=== PATIENT | female | born 1945 | race Caucasian/White ===

== ENCOUNTER → 2018-10-04 | Outpatient (CLI) | payer MEDICARE ==
--- NOTE | 2018-10-05 22:34 | BD ---
EXAMINATION TYPE: Axial Bone Density DATE OF EXAM: 10/04/2018 COMPARISON: 2016 CLINICAL HISTORY: osteoporosis Height: 5'5 1/2 Weight: 152 FRAX RISK QUESTIONS: Secondary Osteoporosis: 3. Menopause before 45: y RISK FACTORS HISTORY OF: Diet low in dairy products/other sources of calcium: y Postmenopausal woman: y Lost more than 2 inches in height since high school: y MEDICATIONS: Additional Medications: , kidney stones, potassium , acid reflux, cholesterol , frequent urination Additional History: ovarian cancer 1983, chemo. breast cancer 2013 chemo EXAM MEASUREMENTS: Bone mineral densitometry was performed using the [employer] System. Bone mineral density as measured about the Lumbar spine is: ----- L1-L4(G/cm2): 1.465 T Score Values are as follows: ----- L2: 2.1 ----- L3: 3.7 ----- L4: 3.1 ----- L1-L4: 2.4 Bone mineral density has: Increased 9.1% since study of: 09/11/2015 Bone mineral density about the R hip (g/cm2): 0.958 Bone mineral density about the L hip (g/cm2): 0.954 T Score values are as follows: -----R Neck: -0.6 -----L Neck: -0.6 -----R Total: 0.0 -----L Total: -0.4 Bone mineral density has: Increased 3.0% since study of: 09/11/2015 IMPRESSION: Normal (Values between +1 and -1 indicate normal bone mass). Consider repeating this study in 5 year s or sooner if there is some new clinical indication. NOTE: T-SCORE=SD OF THE YOUNG ADULT MEAN.
== END | disposition home or self-care (01) ==
LOC: RADBDWWP 08:36
PROVIDERS: ATTEND Internal Medicine
DX: M81.0 Age-related osteoporosis without current pathological fracture (principal)
CPT/HCPCS: 77080

== ENCOUNTER → 2019-04-19 | Outpatient (CLI) | payer MEDICARE ==
--- NOTE | 2019-04-19 09:42 | XR ---
EXAMINATION TYPE: XR KUB DATE OF EXAM: 04/19/2019 COMPARISON: 04/19/2019 HISTORY: Kidney stones and flank pain TECHNIQUE: Abdomen is examined in the frontal projection. FINDINGS: Psoas margins are normal. Organomegaly is not evident. No mass effect is evident. Normal co lonic bowel gas is present. Periventricular phleboliths within the pelvis. Distal ureteral stones cou ld be considered on the left. Correlate with symptoms. Suspicious calcifications are not otherwise i dentified. IMPRESSION: 1. No suspicious changes identified.
== END | disposition home or self-care (01) ==
LOC: RADXRMAIN 09:11
PROVIDERS: ATTEND Internal Medicine
DX: N20.0 Calculus of kidney (principal)
CPT/HCPCS: 74018

== ENCOUNTER → 2019-06-06 | Outpatient (CLI) | payer MEDICARE ==
[2019-06-06 11:06] LABS: Basophils # (A) 0.1 k/uL (0-0.2); Basophils % (A) 2 %; Eosinophils # (A) 0.3 k/uL (0-0.7); Eosinophils % (A) 5 %; HCT 43.2 % (34.0-46.0); Lymphocytes % (A) 33 %; MCH 28.5 pg (25.0-35.0); MCHC 32.5 g/dL (31.0-37.0); MCV 87.9 fL (80.0-100.0); Mean Platelet Volume 7.1; Monocytes # (A) 0.4 k/uL (0-1.0); Monocytes % (A) 7 %; Neutrophils % (A) 49 %; Platelet Count 321 k/uL (150-450); RBC 4.92 m/uL (3.80-5.40); RDW 12.7 % (11.5-15.5); WBC 6.2 k/uL (3.8-10.6)
[2019-06-06 11:21] LABS: Potassium 4.1 mmol/L (3.5-5.1)
== END | disposition home or self-care (01) ==
LOC: LABWHC1 10:16
PROVIDERS: ATTEND Orthopaedic Surgery
DX: Z01.818 Encounter for other preprocedural examination (principal); M65.341 Trigger finger, right ring finger
CPT/HCPCS: 36415; 80051; 85025

== ENCOUNTER 2019-06-29 10:53 | Day surgery (SDC) | payer MEDICARE ==
[2019-06-26 11:53] VITALS: BMI 25.0
--- NOTE | 2019-06-28 20:43 | HP ---
HISTORY AND PHYSICAL REASON FOR ADMISSION: Surgery scheduled for 06/29/2019 Olivia Blair is a 73-year-old patient seen with symptomatic right ring finger trigger finger. We discussed options for treatment. She elected to proceed with release A1 pia, right ring finger. Consent regarding procedure is obtained. PAST MEDICAL HISTORY: Hypertension, hyperlipidemia. PAST SURGICAL HISTORY: Hysterectomy. DAILY MEDICATIONS: Hydrochlorothiazide, potassium chloride, simvastatin, vitamins. ALLERGIES: PENICILLIN, CLINDAMYCIN. SOCIAL HISTORY: She denies tobacco use. PHYSICAL EXAMINATION: Physical evaluation of the right hand, tenderness along the A1 pia area of the right ring finger. There is a nodule palpable at that area as well. There is clicking and catching of the right ring finger. There is no tenderness along the remaining areas of the A1 pulleys. She has good perfusion sensation distally. RADIOGRAPHS: Radiographs of the right hand revealed mild osteoarthritic changes. IMPRESSION: 1. Right ring finger trigger finger. 2. Hypertension. 3. Hyperlipidemia. PLAN: Release A1 pia, right ring finger. Surgery is scheduled for 06/29/2019. MMODL / IJN: [id number] /
[~2019-06-29 10:53] MED LIST: DEXAMETHASONE SOD PHOSPHATE 10 MG/ML 1 ML VIAL IV ONE; HYDROmorphone 0.5 MG/0.5 ML SYRINGE IVP PRN; LACTATED RINGERS 1,000 ML IV SCH; LIDOCAINE 1% 20 ML VIAL (10MG/ML) FOR IV START INTRADERMA PRN; ONDANSETRON 4 MG/2 ML VIAL IVP ONE; Pre Op ABX Message 1 EACH MISC MISCELLANE ONE
[2019-06-29 11:50] VITALS: RESP 16; TEMP 97.1
[2019-06-29] MEDS ORDERED: fentaNYL (PF) 50 MCG/ML 2 ML AMP ONE (12:17)
[2019-06-29] MEDS ORDERED: MIDAZOLAM 2 MG/2 ML VIAL ONE (12:17)
[2019-06-29] MEDS ORDERED: PROPOFOL 10 MG/ML 20 ML VIAL IV ONE (12:17)
[2019-06-29] MEDS ORDERED: BUPIVACAINE (PF) 0.25% 30 ML VIAL SQ ONE ×2 (12:43)
--- NOTE | 2019-06-29 13:02 | P.OP ---
Date of Procedure: 06/29/19 Preoperative Diagnosis: Right ring finger trigger finger Postoperative Diagnosis: Right ring finger trigger finger Procedure(s) Performed: Release A1 pia right ring finger Anesthesia: MAC, local Surgeon: Gabriel Gordon Estimated Blood Loss (ml): 0 Pathology: none sent Condition: stable Disposition: PACU Indications for Procedure: 73-year-old patient seen with symptomatic right ring finger trigger finger. After treatment options were discussed, she elected to proceed with release A1 pia right ring finger. Operative Findings: see description of procedure Description of Procedure: The patient was taken to the operative suite. The patient received IV sedation by the department of anesthesia. A well-padded tourniquet placed proximal right upper extremity. The patient did receive preoperative IV antibiotics. The right upper extremity was prepped and draped in the normal sterile orthopedic fashion. The extremity was elevated and tourniquet was insufflated to 250. I infiltrated the proposed incision site with 5 mL quarter percent plain Marcaine. When sufficient local analgesia was noted the extremity was elevated and tourniquet insufflated to 250. I now made an incision over the area A1 pia right ring finger. I dissected down to the A1 pia. I then incised the A1 pia. I made sure the release was completed proximally and distally with blunt tenotomies. There was complete release of the A1 plate. There was good excursion of the tendon. The wound was irrigated. There was good hemostasis. The skin margins were proximal nylon suture. Sterile dressings were applied. The tourniquet was released with immediate capillary refill of all digits noted. The patient was then transferred to recovery stable condition.
[2019-06-29 13:21] VITALS: BP 105/65; PULSE 77
== END 2019-06-29 13:44 | disposition home or self-care (01) ==
LOC: OR 10:53
PROVIDERS: ATTEND Orthopaedic Surgery
DX: M65.341 Trigger finger, right ring finger (principal); I10 Essential (primary) hypertension; E78.5 Hyperlipidemia, unspecified; Z90.710 Acquired absence of both cervix and uterus; Z87.442 Personal history of urinary calculi; K21.9 Gastro-esophageal reflux disease without esophagitis; Z90.10 Acquired absence of unspecified breast and nipple; Z79.899 Other long term (current) drug therapy; Z88.1 Allergy status to other antibiotic agents; Z88.0 Allergy status to penicillin
CPT/HCPCS: 26055; J2250; J1100; J2405; J3010; J2704

== ENCOUNTER → 2021-07-14 | Outpatient (CLI) | payer MEDICARE ==
--- NOTE | 2021-07-14 19:12 | ECHOF ---
Referral Reason:Z85.3 history breast ca MEASUREMENTS -------- HEIGHT: 167.6 cm WEIGHT: 68.0 kg BP: IVSd: 1.1 cm (0.6 - 1.1) LVIDd: 3.5 cm (3.9 - 5.3) LVPWd: 1.2 cm (0.6 - 1.1) EDV(Teich): 49 ml IVSs: 1.4 cm LVIDs: 2.1 cm LVPWs: 1.8 cm %IVS Thck: 25 % ESV(Teich): 15 ml EF(Teich): 70 % %FS: 39 % SV(Teich): 35 ml Ao Diam: 2.7 cm (2.0 - 3.7) AV Cusp: 2.0 cm (1.5 - 2.6) EPSS: 0.2 cm MV EF SLOPE: 38.90 mm/s (70 - 150) MV EXCURSION: 18.52 mm (> 18.000) FINDINGS -------- Sinus rhythm. This was a technically difficult study with suboptimal views. Poor apicals. Study taken from subcoa stals. The left ventricular size is normal. There is mild concentric left ventricular hypertrophy. Overa ll left ventricular systolic function is normal with, an EF between 55 - 60 %. The RV was not well visualized. The left atrium was not well visualized. The right atrium was not well visualized. Lumason used The aortic valve was not well visualized. No mitral regurgitation. Mild tricuspid regurgitation present. The pulmonic valve was not well visualized. The aortic root size is normal. IVC Not well visulized. There is no pericardial effusion. CONCLUSIONS -------- 1. The left ventricular size is normal. 2. There is mild concentric left ventricular hypertrophy. 3. Overall left ventricular systolic function is normal with, an EF between 55 - 60 %. 4. Mild tricuspid regurgitation present. CEO & FOUNDER: Rachel Mckeon, [facility]
--- NOTE | 2021-07-15 10:54 | US ---
EXAMINATION TYPE: US carotid duplex BILAT DATE OF EXAM: 07/14/2021 COMPARISON: NONE CLINICAL HISTORY: 75-year-old female I65.23 BILATERAL CAROTID ARTERY STENOSIS. TECHNIQUE: Carotid duplex ultrasound examination. Indirect Doppler criteria was utilized. FINDINGS: EXAM MEASUREMENTS: RIGHT: Peak Systolic Velocity (PSV) cm/sec ----- Right CCA: 99.2 ----- Right ICA: 72.5 ----- Right ECA: 104 ICA/CCA ratio: 0.73 RIGHT: End Diastole cm/sec ----- Right CCA: 29.1 ----- Right ICA: 32.1 ----- Right ECA: 20.2 LEFT: Peak Systolic Velocity (PSV) cm/sec ----- Left CCA: 80.2 ----- Left ICA: 75.4 ----- Left ECA: 82.0 ICA/CCA ratio: 0.94 LEFT: End Diastole cm/sec ----- Left CCA: 23.8 ----- Left ICA: 29.7 ----- Left ECA: 17.2 VERTEBRALS (direction of flow): Right Vertebral: Antegrade Left Vertebral: Antegrade Rhythm: Arrhythmia Charrer notes: No Stenosis seen at this time IMPRESSION: 1. No hemodynamically significant internal carotid artery stenosis on either side. 2. Note that the hull line crew member indicates arrhythmia during the scan. Further evaluation as clinically i ndicated. Criteria for Assigning % of Stenosis / Diameter reduction (Estimation based on the indirect measurements of the internal carotid artery velocities (ICA PSV). 1. Normal (no stenosis)=ICA PSV < 125 cm/s: ratio < 2.0: ICA EDV<40 cm/s. 2. Less than 50% stenosis=ICA PSV < 125 cm/s: ratio < 2.0: ICA EDV<40 cm/s. 3. 50 to 69% stenosis=ICA PSV of 125 to 230 cm/s: ration 2.0 ? 4.0: ICA EDV 40-100 cm/s. 4. Greater than 70% stenosis to near occlusion= ICA PSV > 230 cm/s: ratio > 4.0: ICA EDV > 100 cm/s. 5. Near occlusion= ICA PSV velocities may be low or undetectable: variable ratio and ICA EDV. 6. Total occlusion=unable to detect flow.
== END | disposition home or self-care (01) ==
LOC: RADECHMAIN 13:42
PROVIDERS: ATTEND Internal Medicine
DX: I07.1 Rheumatic tricuspid insufficiency (principal); I65.23 Occlusion and stenosis of bilateral carotid arteries; Z85.3 Personal history of malignant neoplasm of breast
CPT/HCPCS: 93880; C8929; Q9950; 93306

== ENCOUNTER → 2021-10-14 | Outpatient (CLI) | payer MEDICARE ==
--- NOTE | 2021-10-14 22:25 | BD ---
EXAMINATION TYPE: Axial Bone Density DATE OF EXAM: 10/14/2021 COMPARISON: DEXA bone scan 2018 CLINICAL HISTORY: 75 years year old Female. ICD-10 CODE: Z13.820 Height: 65.5 inches Weight: 148 pounds. FRAX RISK QUESTIONS: Alcohol (3 or more units per day): NO Family History (Parent hip fracture): NO Glucocorticoids (More than 3mos): NO History of Fracture in Adulthood: NO Secondary Osteoporosis: 1. Type 1 Diabetes: NO 2. Hyperthyroidism: NO 3. Menopause before 45: YES AGE 38 4. Malnutrition: NO 5. Chronic liver disease: NO Rheumatoid Arthritis: NO Current Tobacco Use: NO RISK FACTORS HISTORY OF: Hip Fracture (Right/Left): NO Spine Fracture: NO History of Wrist Fracture: NO Surgery to Spine/Hip(right/left)/Wrist (right/left): NO Family History of Osteoporosis: NO Active: YES Diet low in dairy products/other sources of calcium: YES Postmenopausal woman: YES Lost more than 2 inches in height since high school: YES Poor Health: NO Hyperparathyroidism: NO Adrenal Insufficiency: NO MEDICATIONS: Prednisone or other steroids: NO Thyroid Medications: NO Osteoporosis Medications: NO Additional Medications: SEE MED LIST Additional History: EXAM MEASUREMENTS: Bone mineral densitometry was performed using the [employer] System. Bone mineral density as measured about the Lumbar spine is: - L1-L4(G/cm2): 4.3 T Score Values are as follows: ----- L1: 0.6 ----- L2: 3.8 ----- L3: 7.2 ----- L4: 5.8 ----- L1-L4: 4.3 Bone mineral density has: INCREASED 20.6 % since study of: 2019 Bone mineral density about the R hip (g/cm2): .898 Bone mineral density about the L hip (g/cm2): .917 T Score values are as follows: -----R Neck: -1.0 -----L Neck: -0.9 -----R Total: 0.5 -----L Total: 1.0 Bone mineral density has: DECREASED -7.6 % since study of: 2019 Bone density is falsely elevated in the low back due to reactive sclerosis. FRAX%s: The graph provided illustrates a 9.6% chance for a major osteoporotic fx and a 1.5% chance fo r the hips probability for fx in 10 years time. IMPRESSION: Normal (Values between +1 and -1 indicate normal bone mass). Consider repeating this study in 5 year s or sooner if there is some new clinical indication. NOTE: T-SCORE=SD OF THE YOUNG ADULT MEAN.
== END | disposition home or self-care (01) ==
LOC: RADBDWWP 08:27
PROVIDERS: ATTEND Internal Medicine
DX: Z13.820 Encounter for screening for osteoporosis (principal); Z78.0 Asymptomatic menopausal state
CPT/HCPCS: 77080

== ENCOUNTER → 2021-12-31 | Outpatient (CLI) | payer MEDICARE ==
--- NOTE | 2022-01-01 08:18 | MR ---
EXAMINATION TYPE: MR knee RT wo con DATE OF EXAM: 12/31/2021 COMPARISON: Outside right knee x-ray November 26, 2021 HISTORY: Right inner knee pain and swelling for 7 weeks. TECHNIQUE: Multiplanar, multisequence imaging of the right knee is performed without IV contrast. FINDINGS: MEDIAL MENISCUS: Medial extrusion medial meniscus on coronal images. Truncated appearance posterior h orn with abnormal signal extending to the central body and inferior articular surface. LATERAL MENISCUS: Anterior and posterior horns are intact without tear. CRUCIATE LIGAMENTS: The anterior and posterior cruciate ligaments are intact and unremarkable. COLLATERAL LIGAMENTS: The medial collateral ligament and lateral collateral ligament complex are inta ct. Abnormal fluid signal from superficial and deep fibers of the medial collateral ligament complex. EXTENSOR MECHANISM: Visualized quadriceps and patellar tendons are intact. EFFUSION: Moderate to large size suprapatellar joint effusion. POPLITEAL CYST: No popliteal/byrd cyst. TRICOMPARTMENT SPACES: Moderate narrowing and spurring patellofemoral compartment. Mild spurring late ral and medial tibiofemoral compartments. CARTILAGE: Chondromalacia patella with marked cartilaginous loss along the posterior patellar pole. C artilaginous loss medial tibiofemoral compartment. BONE MARROW SIGNAL: Small focus diminished T1 and increased T2 signal posterior patellar pole sagitta l image 16 at site of full-thickness cartilaginous loss. Additional smaller foci are present along th e posterior patellar pole. OTHER: No additional significant abnormality is appreciated. IMPRESSION: 1. Full-thickness tear medial meniscus involving posterior horn and central body 2. [id number]-[id number] MCL sprain injury. 3. Moderate to advanced patellofemoral joint arthropathy as detailed above. Chondrocalcinosis is present on radiographs. Correlate for pseudogout. 4. Moderate to large-sized suprapatellar joint effusion. 5. Additional Moderate degenerative changes greatest medial tibiofemoral compartment as detailed nathaly kwan.
== END | disposition home or self-care (01) ==
LOC: RADMRIMAIN 19:33
PROVIDERS: ATTEND Orthopaedic Surgery
DX: M75.111 Incomplete rotator cuff tear or rupture of right shoulder, not specified as traumatic (principal); M11.261 Other chondrocalcinosis, right knee

== ENCOUNTER → 2022-01-27 | Outpatient (CLI) | payer MEDICARE ==
[2022-01-27 12:10] LABS: Basophils # (A) 0.1 k/uL (0-0.2); Basophils % (A) 1 %; Eosinophils # (A) 0.2 k/uL (0-0.7); Eosinophils % (A) 3 %; HGB 14.4 gm/dL (11.4-16.0); Lymphocytes # (A) 2.1 k/uL (1.0-4.8); Lymphocytes % (A) 22 %; MCH 29.5 pg (25.0-35.0); MCHC 32.8 g/dL (31.0-37.0); MCV 89.9 fL (80.0-100.0); Mean Platelet Volume 6.9; Monocytes # (A) 0.6 k/uL (0-1.0); Monocytes % (A) 7 %; Neutrophils # (A) 6.4 k/uL (1.3-7.7); Neutrophils % (A) 67 %; Platelet Count 363 k/uL (150-450); RBC 4.89 m/uL (3.80-5.40); RDW 12.8 % (11.5-15.5); WBC 9.6 k/uL (3.8-10.6)
[2022-01-27 12:40] LABS: Potassium 4.1 mmol/L (3.5-5.1)
== END | disposition home or self-care (01) ==
LOC: LABWHC1 11:36
PROVIDERS: ATTEND Orthopaedic Surgery
DX: Z01.818 Encounter for other preprocedural examination (principal); I44.4 Left anterior fascicular block; M23.91 Unspecified internal derangement of right knee; R94.31 Abnormal electrocardiogram [ECG] [EKG]
CPT/HCPCS: 36415; 80051; 85025; 93005

== ENCOUNTER 2022-02-11 09:32 | Day surgery (SDC) | payer MEDICARE ==
[2022-02-09 15:50] VITALS: BMI 23.3
--- NOTE | 2022-02-11 00:04 | HP ---
HISTORY AND PHYSICAL DATE OF SURGERY: 02/11/2022. HISTORY OF PRESENT ILLNESS: Olivia Blair is a 76-year-old patient seen with progressive right knee pain. We discussed options for treatment. She elected to proceed with right knee arthroscopy. Consent was obtained. PAST MEDICAL HISTORY: Hyperlipidemia, hypertension, and gastroesophageal reflux disease. PAST SURGICAL HISTORY: Hysterectomy, cervical diskectomy, mastectomy, and trigger finger release. DAILY MEDICATIONS: 1. Detrol. 2. Hydrochlorothiazide. 3. Simvastatin. 4. Cymbalta. 5. Motrin. ALLERGIES: 1. Penicillin. 2. Clindamycin. 3. Keflex. SOCIAL HISTORY: She denies tobacco use. PHYSICAL EVALUATION OF THE RIGHT KNEE: Range of motion is 0 to 130. Mild effusion. Tenderness along the medial joint line. Positive medial Sana's. Ligaments stable. Hip rotation without pain. Distal neurovascular exam intact. IMAGING STUDIES: Right knee radiographs revealed moderate osteoarthritis. MRI of the right knee revealed a medial meniscal tear, intra-articular effusion, and osteoarthritic changes. IMPRESSION: 1. Internal derangement of right knee with medial meniscal tear. 2. Hypertension. 3. Hyperlipidemia. PLAN: Right knee arthroscopy with partial medial meniscectomy and debridement. MMODL / IJN: [id number] /
[~2022-02-11 09:32] MED LIST changes: -DEXAMETHASONE SOD PHOSPHATE 10 MG/ML 1 ML VIAL IV ONE; +DEXAMETHASONE SOD PHOSPHATE 4 MG/ML 1 ML VIAL IV ONE; -LIDOCAINE 1% 20 ML VIAL (10MG/ML) FOR IV START INTRADERMA PRN; -Pre Op ABX Message 1 EACH MISC MISCELLANE ONE
[2022-02-11] MEDS ORDERED: LIDOCAINE 1% (10MG/ML) FOR IV START INTRADERMA ONE (10:04)
[2022-02-11] MEDS ORDERED: SCOPOLAMINE 1 MG/72 HR PATCH TRANSDERM ONE (10:26)
[2022-02-11] MEDS ORDERED: KETOROLAC 15 MG/ML 1 ML VIAL ONE (11:34)
[2022-02-11] MEDS ORDERED: MIDAZOLAM 2 MG/2 ML VIAL ONE (11:34)
[2022-02-11] MEDS ORDERED: fentaNYL (PF) 50 MCG/ML 2 ML AMP ONE (11:34)
[2022-02-11] MEDS ORDERED: SUCCINYLCHOLINE CHLORIDE 200 MG/10 ML VIAL IV ONE (11:34)
[2022-02-11] MEDS ORDERED: PROPOFOL 10 MG/ML 20 ML VIAL IV ONE (11:34)
[2022-02-11] MEDS ORDERED: BUPIVACAIN-EPI 0.25%-1:200,000 30 ML VIAL INTRAARTIC ONE (11:53)
--- NOTE | 2022-02-11 12:20 | P.OP ---
Date of Procedure: 02/11/22 Preoperative Diagnosis: Internal derangement right knee Postoperative Diagnosis: 1. Tear medial and lateral meniscus right knee 2. Reactive synovitis medial, lateral and suprapatellar compartments right knee 3. Loose body right knee Procedure(s) Performed: 1. Arthroscopic partial medial and lateral meniscectomy right knee 2. Arthroscopic partial synovectomy medial, lateral and suprapatellar compartments right knee 3. Arthroscopic removal loose body right knee Anesthesia: TANVIA, local Surgeon: Gabriel Gordon Estimated Blood Loss (ml): 10 Pathology: none sent Condition: stable Disposition: PACU Indications for Procedure: 76-year-old patient seen with progressive right knee pain. After treatment options were discussed, she elected to proceed with arthroscopy. Operative Findings: See description of procedure Description of Procedure: Patient was taken to the operative suite. Patient underwent a general anesthetic by the department of anesthesia. Patient was given preoperative antibiotics. The right lower extremity was placed in a well-padded arthroscopic leg jama. The right leg was prepped and draped in the normal sterile orthopedic fashion. A lateral parapatellar and suprapatellar incision was made. Trochars were inserted. Arthroscopy was initiated. Suprapatellar pouch revealed diffuse thick reactive synovitis. The patellofemoral joint appeared to articulate congruently. There was grade 3 chondromalacia of the patellofemoral joint without osteochondral tear present. The scope was guided into the medial gutter. No loose bodies or plica were identified. The scope was then guided i nto the medial compartment. A medial parapatellar incision was made. Trocar inserted followed by probe. There was a complex tear involving the mid body and posterior horns of the medial meniscus. There were grade 3, she changes diffusely about the medial compartment without osteochondral tears present. There was some thick reactive synovitis anteriorly. I performed a partial medial meniscectomy getting down to stable meniscal tissue. Upon completing this and did note a loose body in the posterior aspect of the medial compartment. I introduced a pituitary forceps and retrieved the loose body without difficulty. I now introduced a motorized shaver and performed a partial synovectomy decompressing the thick reactive synovitis. The residual meniscus was stable. There was good decompression of the synovitis. Scope and probe were then guided into the intercondylar notch. Cruciates were identified, probed and found to be stable. The scope and probe were then guided into lateral compartment. There was a radial tear mid body lateral meniscus. There were grade 1/2 chondromalacia changes throughout the lateral compartment without evidence for significant osteochondral tear. I performed a partial lateral meniscectomy getting down to stable meniscal tissue. I performed a partial synovectomy decompressing the reactive synovitis. The residual meniscus was stable. There was good decompression of the synovitis. The scope was in guided back into the suprapatellar compartment. I introduced a motorized shaver into the super patellar compartment. I debrided some piecemeal fragments of meniscus I encountered. I performed a partial synovectomy. Shaver was now removed. There appeared be good decompression of synovitis. I took one more look around the entire knee, no residual debris. Instruments were now removed from the joint. The joint was infiltrated with .25% Marcaine. Steri-Strips were applied to the portal sites. Sterile dressings were applied. The patient was placed into a IGLESIA hose. No tourniquet was utilized. The patient was awakened, transferred to a bed and taken to recovery stable satisfactory condition.
[2022-02-11 12:22] VITALS: TEMP 96.9
[2022-02-11] MEDS ORDERED: LACTATED RINGERS 1,000 ML IV ONE (13:12)
[2022-02-11] MEDS ORDERED: HYDROcodone/APAP 5-325MG 1 EACH TAB ONE (13:55)
[2022-02-11] MEDS ORDERED: HYDROcodone/APAP 5-325MG 1 EACH TAB PO ONE (13:56)
[2022-02-11 14:00] VITALS: BP 121/75; PULSE 90; RESP 14
== END 2022-02-11 14:55 | disposition home or self-care (01) ==
LOC: OR 09:32
PROVIDERS: ATTEND Orthopaedic Surgery
DX: M23.203 Derangement of unspecified medial meniscus due to old tear or injury, right knee (principal); M23.200 Derangement of unspecified lateral meniscus due to old tear or injury, right knee; M65.861 Other synovitis and tenosynovitis, right lower leg; M23.41 Loose body in knee, right knee; E78.5 Hyperlipidemia, unspecified; I10 Essential (primary) hypertension; K21.9 Gastro-esophageal reflux disease without esophagitis; Z79.1 Long term (current) use of non-steroidal anti-inflammatories (NSAID); Z79.899 Other long term (current) drug therapy; Z90.710 Acquired absence of both cervix and uterus; Z90.10 Acquired absence of unspecified breast and nipple; Z98.890 Other specified postprocedural states; Z88.1 Allergy status to other antibiotic agents; Z88.0 Allergy status to penicillin
CPT/HCPCS: 29880; J2250; J0330; J1100; J0690; J2405; J3010; J1885; J2704; J1170

== ENCOUNTER → 2022-02-20 | Outpatient (CLI) | payer MEDICARE ==
--- NOTE | 2022-02-20 14:19 | MR ---
EXAMINATION TYPE: MR shoulder RT wo con DATE OF EXAM: 02/20/2022 COMPARISON: Outside right shoulder x-ray January 27, 2022 HISTORY: Right shoulder pain x 2 months. TECHNIQUE: Multiplanar, multisequence imaging of the right shoulder is performed without contrast. FINDINGS: Rotator Cuff: Complete full-thickness retracted tear of the distal supraspinatus tendon to level of t he distal clavicle coronal image 11 for reference. Complete full-thickness retracted tear of at least significant portion the infraspinatus tendon to the level of the acromioclavicular joint, perhaps a few inferior fibers remain intact coronal image 21 for reference. Subscapularis tendon intact with in creased signal and surrounding fluid. Rotator cuff muscle bulk fairly well-maintained. Acromioclavicular Joint: Moderate to severe capsular hypertrophy. Mild joint space loss. No significa nt spurring. Glenohumeral Joint: Large sized joint effusion with superior and inferior lung with medial extension. Labrum: The superior labrum is not well identified suggesting large tear. Biceps Tendon: In the bicipital groove there is tiny structure could reflect atrophic tendon for refe rence axial image 11. It cannot be traced to the bicipital anchor. There is suspected displaced tear at the anchor. Intra-articular portion not well visualized. Bone marrow signal: No focal abnormal marrow signal is appreciated. Other: No additional significant abnormality is appreciated. IMPRESSION: 1. Complete Full-thickness retracted tear of the supraspinatus tendon. Near complete full-thickness r etracted tear of the infraspinatus tendon. There is suspected displaced superior labral tear includin g biceps anchor. Correlate clinically. Large joint effusion noted.
== END | disposition home or self-care (01) ==
LOC: RADMRIMAIN 10:54
PROVIDERS: ATTEND Orthopaedic Surgery
DX: M75.121 Complete rotator cuff tear or rupture of right shoulder, not specified as traumatic (principal); M25.411 Effusion, right shoulder

== ENCOUNTER → 2022-04-24 | Outpatient (CLI) | payer MEDICARE ==
[2022-04-24 17:33] LABS: Basophils # (A) 0.08 X 10*3/uL (0.00-0.10); Basophils % (A) 1.1 %; Eosinophils # (A) 0.34 X 10*3/uL (0.04-0.35); Eosinophils % (A) 4.9 %; HCT 40.2 % (37.2-46.3); HGB 13.5 g/dL (12.0-15.0); Immature Grans, Automated 0.1 %; Lymphocytes # (A) 2.78 X 10*3/uL (0.90-5.00); Lymphocytes % (A) 39.8 %; MCHC 33.6 g/dL (32.0-37.0); MCV 92.2 fL (80.0-97.0); Mean Platelet Volume 9.3 fL (9.5-12.2); Monocytes # (A) 0.79 X 10*3/uL (0.20-1.00); Monocytes % (A) 11.3 %; NRBC Per 100 WBC 0 /100 WBCS (0.0-0.0); Neutrophils # (A) 2.99 X 10*3/uL (1.80-7.70); Neutrophils % (A) 42.8 %; Platelet Count 344 X 10*3/uL (140-440); RBC 4.36 X 10*6/uL (4.10-5.20); RDW 13.2 % (11.5-14.5); WBC 6.99 X 10*3/uL (4.50-10.00)
[2022-04-24 17:54] LABS: Anion Gap 15.2 mmol/L (10.00-18.00); Carbon Dioxide 25.7 mmol/L (20.0-27.5); Potassium 3.5 mmol/L (3.5-5.5)
== END | disposition home or self-care (01) ==
LOC: LABPAT 10:40
PROVIDERS: ATTEND Orthopaedic Surgery
DX: Z01.812 Encounter for preprocedural laboratory examination (principal); M75.41 Impingement syndrome of right shoulder
CPT/HCPCS: 80051; 85025

== ENCOUNTER 2022-05-20 05:34 | Day surgery (SDC) | payer MEDICARE ==
--- NOTE | 2022-05-19 23:13 | HP ---
HISTORY AND PHYSICAL DATE OF SURGERY: 05/20/2022. HISTORY OF PRESENT ILLNESS: Olivia Blair is a 76-year-old patient, seen with progressive right shoulder pain. We discussed options for treatment. She elected to proceed with right shoulder arthroscopy. Consent was obtained. Medical clearance was provided. PAST MEDICAL HISTORY: Hypertension, hyperlipidemia, asthma. PAST SURGICAL HISTORY: Hysterectomy, cervical diskectomy, mastectomy, knee arthroscopy, colonoscopy. DAILY MEDICATIONS: 1. Claritin. 2. Benadryl. 3. Detrol. 4. Hydrochlorothiazide. 5. Potassium. 6. Simvastatin. 7. Cymbalta. 8. Motrin. ALLERGIES: Penicillin, clindamycin, Keflex. SOCIAL HISTORY: She denies tobacco use. PHYSICAL EVALUATION OF THE RIGHT SHOULDER: Flexion is 120 degrees, abduction is 90 degrees, external rotation is 30 degrees with pain and weakness. Tenderness along the anterolateral acromion and rotator cuff insertion. Impingement is positive at 90 degrees. Drop-arm sign is positive. Distal neurovascular exam is intact. RADIOGRAPHS: Radiographs of the right shoulder revealed acromioclavicular joint osteoarthritis, cystic changes of the tuberosity, and type 2 acromion. An MRI of her right shoulder revealed a retracted rotator cuff tendon tear, acromioclavicular joint osteoarthritis, and labral tear. IMPRESSION: 1. Right shoulder impingement with rotator cuff tear. 2. Right shoulder acromioclavicular joint osteoarthritis. 3. Right shoulder labral tear. 4. Hyperlipidemia. 5. Hypertension. 6. Asthma. PLAN: Right shoulder arthroscopy with subacromial decompression, arthroscopic rotator cuff repair, Pat procedure, and debridement. MMODL / IJN: [id number] /
[2022-05-20] MEDS ORDERED: ONDANSETRON 4 MG/2 ML VIAL ONE (06:28)
[2022-05-20] MEDS ORDERED: DEXAMETHASONE SOD PHOSPHATE 4 MG/ML 1 ML VIAL IV ONE (06:30)
[2022-05-20] MEDS ORDERED: ONDANSETRON 4 MG/2 ML VIAL IVP ONE (06:30)
[2022-05-20] MEDS ORDERED: LACTATED RINGERS 1,000 ML IV SCH (06:30)
[2022-05-20] MEDS ORDERED: LIDOCAINE 1% (10MG/ML) FOR IV START INTRADERMA PRN (06:30)
[2022-05-20] MEDS ORDERED: LIDOCAINE 1% (10MG/ML) FOR IV START INTRADERMA ONE (06:44)
[2022-05-20] MEDS ORDERED: SCOPOLAMINE 1 MG/72 HR PATCH TRANSDERM ONE (06:51)
[2022-05-20] MEDS ORDERED: MIDAZOLAM 2 MG/2 ML VIAL IV ONE (06:52)
[2022-05-20] MEDS ORDERED: HYDROmorphone 0.5 MG/0.5 ML SYRINGE IVP PRN (07:00)
[2022-05-20] MEDS ORDERED: MIDAZOLAM 2 MG/2 ML VIAL ONE (07:21)
[2022-05-20] MEDS ORDERED: fentaNYL (PF) 50 MCG/ML 2 ML AMP ONE (07:21)
[2022-05-20] MEDS ORDERED: DEXAMETHASONE SOD PHOSPHATE 4 MG/ML 1 ML VIAL ONE (07:21)
[2022-05-20] MEDS ORDERED: PHENYLEPHRINE-0.9% NACL SYG 1,000 MCG/10 ML SYRINGE ONE (07:21)
[2022-05-20] MEDS ORDERED: SUCCINYLCHOLINE CHLORIDE 200 MG/10 ML VIAL IV ONE (07:21)
[2022-05-20] MEDS ORDERED: LIDOCAINE 2% INJ 20 MG/ML (2 ML VIAL) ONE (07:21)
[2022-05-20] MEDS ORDERED: ROPIVACAINE 5 MG/ML 30 ML VIAL ONE (07:21)
[2022-05-20] MEDS ORDERED: PROPOFOL 10 MG/ML 20 ML VIAL IV ONE (07:21)
[2022-05-20 09:26] VITALS: TEMP 96.8
--- NOTE | 2022-05-20 09:30 | P.OP ---
Date of Procedure: 05/20/22 Preoperative Diagnosis: Right shoulder impingement Postoperative Diagnosis: 1. Right shoulder rotator cuff tear 2. Right shoulder impingement Procedure(s) Performed: 1. Right shoulder arthroscopic rotator cuff repair 2. Right shoulder arthroscopic subacromial decompression Implants: 15.5 Arthrex swivel lock anchor Anesthesia: GETA, regional (Interscalene block) Surgeon: Gabriel Gordon Licensed Midwife #1: Olu Webb Estimated Blood Loss (ml): 10 Pathology: none sent Condition: stable Disposition: PACU Indications for Procedure: 76-year-old patient seen with progressive right shoulder pain. After having treatment options discussed, she elected to proceed with arthroscopy. Operative Findings: See description of procedure Description of Procedure: Patient underwent an interscalene block by department of anesthesia. The patient was then taken to the operative suite. The patient underwent a general anesthetic by the department of anesthesia. The patient was placed into a lateral position and secured. There was appropriate padding of the bony prominence. Right shoulder was then prepped and draped in normal sterile orthopedic fashion. We placed the extremity in 10 pounds of longitudinal traction. A posterior incision was now made for a posterior working portal site. The trocar and cannula were inserted into the glenohumeral joint. Arthroscopy was initiated. Spinal needle was now inserted anteriorly, to ascertain the anterior working portal site. An incision was now made in that area, a trocar was inserted followed by a probe. There was evidence of a old long head biceps tendon tear. There was some fraying of the labrum superiorly. There were grade 1 chondromalacia changes throughout the glenohumeral joint. There was an obvious large rotator cuff tear present. I debrided out the superficial labral tearing. Instruments now removed from glenohumeral joint. Utilizing the posterior working portal site, the trocar and cannula were inserted into the subacromial space. Arthroscopy initiated. I made an incision 2 fingerbreadths lateral to the acromion. I introduced my trocar followed by my ArthroCare ablator. I now began ablating thick subacromial bursal tissue, which exposed the undersurface of the anterior acromion. There was diminished subacromial space. There was a very prominent anterior acromion. A motorized bur was introduced and a subacromial decompression was performed. I now evaluated the acromioclavicular joint and noted to be stable with only mild osteoarthritis present. I turned my attention to the large rotator cuff tendon tear. It measured about 4 cm and was retracted to the level of the glenoid. I began releasing meticulously along the anterior, middle and posterior aspects. I abraded the footprint with a motorized bur. With the assistance of Jared LI past for everted mattress sutures converging the tendon centrally to allow for some coverage of this large retracted tear. I cannot barely pull it over the edge of the footprint. I thought this be enough to potentially repair. I now with the assistance of Jared LI I pasted 3 everted mattress sutures through good bites of rotator cuff tendon. I punched on the footprint area for insertion of an anchor. All 6 limbs of suture were passed through the eyelet of a 5.5 Arthrex a lock anchor. I placed the eyelet into the pre-punch hole. I held it in position while Jared LI tension all 6 suture limbs and deployed the anchor with good fixation noted. All residual suture limbs were now clipped. Although the repair was under quite a bit of tension, we had good compression of the tendon along the entire footprint. Instruments now removed from the portal sites. All portal sites were approximated with nylon suture. S terile dressings were applied followed by a shoulder immobilizer. Olu LI assisted in this complex case. The patient was awakened, transferred to a bed, and taken to recovery in stable condition.
[2022-05-20 10:25] VITALS: RESP 17
[2022-05-20 11:01] VITALS: BP 175/79; PULSE 75
--- NOTE | 2022-05-20 12:43 | P.ANPRN ---
Procedure Note - Anesthesia - Nerve Block Performed Right Interscalene Single Procedure Start Time: 07:10 Procedure Stop Time: 07:15 Location of Patient: PreOp Indication: Acute Post-Operative Pain, Requested by Surgeon Sedation Type: Sedate with meaningful contact maintained Preparation: Sterile Prep Position: Supine Needle Types: Pajunk Needle Gauge: 21 Ultrasound used to visualize needle placement: Yes Ultrasound used to observe medication spread: Yes Injectate: 0.5% Ropivacaine (see comment for volume) (20mL with 4mg Decadron) Blood Aspirated: No Pain Paresthesia on Injection Noted: No Resistance on Injection: Normal Image Stored and Saved: Yes Events: Uneventful and Well Tolerated
== END 2022-05-20 11:15 | disposition home or self-care (01) ==
LOC: OR 05:34
PROVIDERS: ATTEND Orthopaedic Surgery
DX: M75.101 Unspecified rotator cuff tear or rupture of right shoulder, not specified as traumatic (principal); M75.41 Impingement syndrome of right shoulder; M19.011 Primary osteoarthritis, right shoulder; M94.211 Chondromalacia, right shoulder; M66.821 Spontaneous rupture of other tendons, right upper arm; M24.111 Other articular cartilage disorders, right shoulder; I10 Essential (primary) hypertension; E78.5 Hyperlipidemia, unspecified; J45.909 Unspecified asthma, uncomplicated; Z79.02 Long term (current) use of antithrombotics/antiplatelets; Z79.899 Other long term (current) drug therapy; Z88.0 Allergy status to penicillin; Z88.1 Allergy status to other antibiotic agents; Z98.890 Other specified postprocedural states; Z90.10 Acquired absence of unspecified breast and nipple; G89.18 Other acute postprocedural pain
CPT/HCPCS: 29827; 29826; 64415; 76942; C1894; C1713; J2250; J0330; J1100; J2405; J0690; J3010; J2795; J2370; J2704; J2001

== ENCOUNTER → 2023-01-01 | Outpatient (CLI) | payer MEDICARE ==
[2023-01-01 10:00] LABS: African American GFR (CKD) >90 (>60 ml/min/1.73 sqM); Blood Urea Nitrogen 16 mg/dL (7-17); Non-African American GFR(CKD) 84 (>60 ml/min/1.73 sqM)
--- NOTE | 2023-01-01 11:41 | CT ---
EXAMINATION TYPE: CT chest w con DATE OF EXAM: 01/01/2023 COMPARISON: HISTORY: dyspnea CT DLP: 443 mGycm Automated exposure control for dose reduction was used. TECHNIQUE: CT scan of the chest is performed with IV Contrast, patient injected with 100 mL of Isovue 300. MIP Images are created on CT scanner and reviewed. 3D reconstructed images are created on an independent workstation and reviewed. FINDINGS: LUNGS: The lungs are grossly clear, there is no concerning parenchymal mass or nodule identified. T here is no pleural effusion or pneumothorax seen. The tracheobronchial tree is patent. 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 There are scattered 1 to 2 mm subpleural micronodules bilaterally which have a benign appearance. MEDIASTINUM: There are no greater than 1 cm hilar or mediastinal lymph nodes. No pericardial effusi on is seen. Aorta of normal caliber. There is no significant atherosclerotic changes. Heart size nor mal. OTHER: Multiple focal hypodensities within the liver are compatible with simple cysts. There is a la rge hiatal hernia. There is post breast implant surgery.. IMPRESSION: 1. 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 2. Large hiatal hernia.
== END | disposition home or self-care (01) ==
LOC: RADCTMAIN 09:04
PROVIDERS: ATTEND Internal Medicine
DX: K44.9 Diaphragmatic hernia without obstruction or gangrene (principal); R06.09 Other forms of dyspnea
CPT/HCPCS: 82565; 84520; 71260; 36415; Q9967

== ENCOUNTER → 2023-01-01 | Outpatient (CLI) | payer MEDICARE ==
[2023-01-01 12:37] LABS: ALT 25 U/L (4-34); AST 39 U/L (14-36); African American GFR (CKD) >90 (>60 ml/min/1.73 sqM); Albumin 4.4 g/dL (3.5-5.0); Albumin/Globulin Ratio 1.3; Alkaline Phosphatase 76 U/L (38-126); Anion Gap 8 mmol/L; Blood Urea Nitrogen 15 mg/dL (7-17); Calcium 10.6 mg/dL (8.4-10.2); Carbon Dioxide 30 mmol/L (22-30); Chloride 98 mmol/L (98-107); Globulin 3.4 g/dL; Glucose 93 mg/dL (74-99); Magnesium 1.3 mg/dL (1.6-2.3); Non-African American GFR(CKD) 85 (>60 ml/min/1.73 sqM); Sodium 136 mmol/L (137-145); Total Bilirubin 0.7 mg/dL (0.2-1.3); Total Protein 7.8 g/dL (6.3-8.2)
[2023-01-01 12:44] LABS: NT-Pro-B-Type Natriuretic Pept 106 pg/mL
[2023-01-01 12:51] LABS: Potassium 4.6 mmol/L (3.5-5.1)
[2023-01-01 14:29] LABS: Appearance,Urine Clear (Clear); Bilirubin,Urine Negative (Negative); Blood,Urine Negative (Negative); Color,Urine Light Yellow; Glucose,Urine (UA) Negative (Negative); Ketones,Urine Negative (Negative); Leukocyte Esterase,Urine Negative (Negative); Nitrite,Urine Negative (Negative); Protein,Urine Negative (Negative); Urobilinogen,Urine <2.0 mg/dL (<2.0)
[2023-01-01 15:37] LABS: HCT 40.7 % (37.2-46.3); HGB 14.5 d/dL (12.0-15.0); MCH 32.3 pg (27.0-32.0); MCHC 35.6 d/dL (32.0-37.0); MCV 90.6 FL (80.0-97.0); Mean Platelet Volume 9.6 FL (9.5-12.2); NRBC Per 100 WBC 0 X 10*3/uL (0.00-0.01); Platelet Count 293 X 10*3/uL (140-440); RBC 4.49 X 10*6/uL (4.10-5.20); RDW 13.3 % (11.5-14.5); WBC 7.48 X 10*3/uL (4.50-10.00)
[2023-01-01 15:38] LABS: Basophils # (A) 0.09 X 10*3/uL (0.00-0.10); Basophils % (A) 1.2 %; Eosinophils # (A) 0.23 X 10*3/uL (0.04-0.35); Eosinophils % (A) 3.1 %; Lymphocytes # (A) 2.57 X 10*3/uL (0.90-5.00); Lymphocytes % (A) 34.4 %; Monocytes # (A) 0.63 X 10*3/uL (0.20-1.00); Monocytes % (A) 8.4 %; Neutrophils # (A) 3.94 X 10*3/uL (1.80-7.70); Neutrophils % (A) 52.6 %
[2023-01-01 15:50] LABS: Carcinoembryonic Antigen 4.5 ng/mL (0.0-4.9)
[2023-01-01 20:35] LABS: Chol/HDL Ratio 2.37 Ratio; T4, Free (Free Thyroxine) 1.35 ng/dL (0.80-1.80)
== END | disposition home or self-care (01) ==
LOC: LABWHC1 10:23
PROVIDERS: ATTEND Internal Medicine
DX: C50.919 Malignant neoplasm of unspecified site of unspecified female breast (principal); I10 Essential (primary) hypertension; E78.2 Mixed hyperlipidemia; E55.9 Vitamin D deficiency, unspecified; N20.0 Calculus of kidney; R06.09 Other forms of dyspnea; R73.03 Prediabetes
CPT/HCPCS: 36415; 80053; 80061; 81003; 82306; 82378; 83036; 83735; 83880; 83970; 84439; 84443; 85025; 85379; 86038

== ENCOUNTER → 2023-02-02 | Outpatient (CLI) | payer MEDICARE ==
--- NOTE | 2023-02-02 09:42 | US ---
EXAMINATION TYPE: US thyroid st tissue head/neck DATE OF EXAM: 02/02/2023 COMPARISON: NONE CLINICAL INDICATION: Female, 77 years old with history of R79.89 SPECIFIED ABNORMAL FINDINGS OF BLOOD CHEMIS; Elevated PTHrP GLAND SIZE: Right Lobe: 4.9 x 1.3 x 1.3 cm Overall Parenchyma: homogenous Left Lobe: 3.9 x 0.9 x 1.3 cm Overall Parenchyma: homogeneous Isthmus Thickness: 0.3 cm NODULES RIGHT: # of nodules measured on right: 0 LEFT: # of nodules measured on left: 1 1. 0.5 X 0.4 x 0.4 cm, lower mid, cystic or almost completely cystic, anechoic nodule, which is wid er than tall, with smooth margins, with echogenic foci. Most consistent with a colloid cyst. Prior size: no prior ISTHMUS: # of nodules measured in the isthmus: 0 Bilateral neck scanned, no evidence of lymphadenopathy. IMPRESSION: Subcentimeter left thyroid lobe colloid cyst.
== END | disposition home or self-care (01) ==
LOC: RADUSWWP 08:45
PROVIDERS: ATTEND Internal Medicine
DX: E04.1 Nontoxic single thyroid nodule (principal); R79.89 Other specified abnormal findings of blood chemistry
CPT/HCPCS: 76536

== ENCOUNTER → 2023-02-09 | Outpatient (CLI) | payer MEDICARE ==
--- NOTE | 2023-02-09 16:43 | CA ---
Exercise Stress Test Report Name: Olivia Blair Exam Date: 02/09/2023 10:27 Exam Location: [facility] Ht (in): 66 Wt (lb): 150 BSA: 1.77 Ordering Phys: Jeff Mukherjee MD Referring Phys: Lonny, Technologist: Andreas Hidalgo Age: 77 Gender: F : 1945 Procedure CPT: Indications: R06.09 Dyspnea ICD-10 Codes: Patient History: DIFFICULTY IN BREATHING, ELEVATED CHOLESTEROL LEVELS Medications: Meds past 24 hrs: Pretest Chest Pain: STRESS TEST Sanya Protocol Exercise Duration (min:sec): 04:[address] Depressions (mm): Angina Score: Wilder Score: Resting HR (bpm): 87 Peak HR (bpm): 136 Resting BP (mmHg): 130 / 74 Peak BP (mmHg): 162 / 88 MPHR: 144 Target HR: 122 % MPHR: 94 METS: 6.5 Total Dose: Peak Dose: Atropine: Double Product: 00553 BP Response: Stress Termination: TARGET HR/MAX EXERTION Stress Symptoms: NO SYMPTOMS Stress Summary: ECG ANALYSIS Resting ECG: Stress ECG: CONCLUSIONS Exercise stress test does not show any evidence for ischemia Normal heart rate and blood pressure response Low workload level achieved Patient exercised on Sanya protocol for only 4 minutes No ECG evidence for ischemia occasional PVCs Dr. Travis Bernardo MD (Electronically Signed) Final Date: 09 February 2023 16:42
--- NOTE | 2023-02-10 21:03 | NM ---
EXAMINATION TYPE: NM stress cardiolite complete DATE OF EXAM: 02/09/2023 COMPARISON: NONE CLINICAL INDICATION: Female, 77 years old with history of R06.09 Dyspnea; TECHNIQUE: After the intravenous administration of 10 mCi Tc 99m Sestamibi - Rest images obtained 58 minutes post injection. The patient exercised using a REJI protocol and 1 minute prior to peak ex ercise was injected with 25.1 mCi Tc 99m Sestamibi - Stress images obtained 20 minutes post injection . FINDINGS: Targeted heart rate (122 BPM) was achieved during performance of the study (136 BPM achieved). Total exercise time 4 minutes. Review of stress and rest SPECT images demonstrates no distinct perfusion ab normality. Gated analysis shows normal wall motion with an estimated left ventricular ejection fract ion of 73 %. TID this calculated at 0.88, within normal limits. IMPRESSION: No scintigraphic evidence for reversible ischemia
== END | disposition home or self-care (01) ==
LOC: RADNMMAIN 08:21
PROVIDERS: ATTEND Internal Medicine
DX: R06.09 Other forms of dyspnea (principal)
CPT/HCPCS: 93017; 78452; A9500

== ENCOUNTER → 2023-04-05 | Outpatient (CLI) | payer MEDICARE ==
[2023-04-05 21:07] LABS: ALT 30 U/L (8-44); AST 30 U/L (13-35); Albumin 4.6 d/dL (3.8-4.9); Albumin/Globulin Ratio 1.77 Ratio (1.60-3.17); Alkaline Phosphatase 82 U/L (41-126); Bilirubin, Conjugated <0.20 mg/dL (0.20-0.40); Bilirubin,Unconjugated >0.10 mg/dL (0.20-1.00); Globulin 2.6 d/dL (1.6-3.3); Total Bilirubin 0.3 mg/dL (0.3-1.2); Total Protein 7.2 d/dL (6.2-8.2)
--- NOTE | 2023-04-06 14:10 | NM ---
EXAMINATION TYPE: NM parathyroid w/spect DATE OF EXAM: 04/05/2023 COMPARISON: NONE CLINICAL INDICATION: Female, 77 years old with history of E21.3 hyperparathyroidism; TECHNIQUE: Following administration of 23.4 mCi Tc99m Sestamibi. Anterior projection images of the neck and ches t were obtained 10 minutes and 3.5 hours post injection. SPECT images of the neck and chest were obt ained and reconstructed in three axes. FINDINGS: Thyroid tracer washout: Delayed images demonstrate near-complete tracer washout from the thyroid. Parathyroid uptake: None. The two-hour delayed images do not demonstrate any focal abnormal persisten t uptake in the region of the parathyroid glands to suggest parathyroid adenoma. Normal uptake: There is physiological tracer uptake in the myocardium, liver, salivary glands, and th yroid gland. IMPRESSION: Normal parathyroid imaging study. No evidence for mediastinal uptake to suggest mediastinal parathyro id adenoma
== END | disposition home or self-care (01) ==
LOC: RADNMMAIN 10:08
PROVIDERS: ATTEND Internal Medicine
DX: E21.3 Hyperparathyroidism, unspecified (principal)
CPT/HCPCS: 80076; 36415; 78071; A9500

== ENCOUNTER → 2023-07-30 | Outpatient (CLI) | payer MEDICARE ==
--- NOTE | 2023-07-30 10:37 | US ---
EXAMINATION TYPE: US carotid duplex BILAT DATE OF EXAM: 07/30/2023 COMPARISON: CLINICAL INDICATION: Female, 77 years old with history of I340 NONRHEUMATIC MITRAL (VALVE) INSUFFICIE NCY; No hx TIA or stroke. No HTN. TECHNIQUE: Carotid duplex ultrasound examination. Indirect Doppler criteria was utilized. FINDINGS: EXAM MEASUREMENTS: RIGHT: Peak Systolic Velocity (PSV) cm/sec ----- Right CCA: 75.6 ----- Right ICA: 106.9 ----- Right ECA: 109.5 ICA/CCA ratio: 1.4 RIGHT: End Diastole cm/sec ----- Right CCA: 21.5 ----- Right ICA: 18.9 ----- Right ECA: 24.1 LEFT: Peak Systolic Velocity (PSV) cm/sec ----- Left CCA: 70.3 ----- Left ICA: 108.2 ----- Left ECA: 104.3 ICA/CCA ratio: 1.5 LEFT: End Diastole cm/sec ----- Left CCA: 19.7 ----- Left ICA: 28.0 ----- Left ECA: 17.6 VERTEBRALS (direction of flow): Right Vertebral: Antegrade Left Vertebral: Antegrade Rhythm: Normal CORE RESCUER NOTES: No elevated velocities or plaque seen at time of scan. IMPRESSION: No evidence for hemodynamically significant stenosis. Criteria for Assigning % of Stenosis / Diameter reduction (Estimation based on the indirect measurements of the internal carotid artery velocities (ICA PSV). 1. Normal (no stenosis)=ICA PSV < 125 cm/s: ratio < 2.0: ICA EDV<40 cm/s. 2. Less than 50% stenosis=ICA PSV < 125 cm/s: ratio < 2.0: ICA EDV<40 cm/s. 3. 50 to 69% stenosis=ICA PSV of 125 to 230 cm/s: ration 2.0 ? 4.0: ICA EDV 40-100 cm/s. 4. Greater than 70% stenosis to near occlusion= ICA PSV > 230 cm/s: ratio > 4.0: ICA EDV > 100 cm/s. 5. Near occlusion= ICA PSV velocities may be low or undetectable: variable ratio and ICA EDV. 6. Total occlusion=unable to detect flow.
--- NOTE | 2023-07-30 18:16 | CA ---
Transthoracic Echo Report Name: Olivia Blair Age: 77 Gender: F : 1945 Exam Date: 07/30/2023 11:04 Exam Location: [facility] Ht (in): 66 Wt (lb): 152 Ordering Physician: Jeff Mukherjee MD Attending/Referring Phys: Giulia Jones MD Contamination Consultant Rachel Mckeon RDCS Procedure CPT: Indications: I34.0 nonrheumatic mitral valve regurgitation Cardiac Hx: Technical Quality: Technically difficult study Contrast 1: Total Dose (mL): Contrast 2: Total Dose (mL): MEASUREMENTS (Male / Female) Normal Values 2D ECHO LV Diastolic Diameter PLAX 2.7 cm 4.2 - 5.9 / 3.9 - 5.3 cm LV Systolic Diameter PLAX 2.1 cm IVS Diastolic Thickness 1.3 cm 0.6 - 1.0 / 0.6 - 0.9 cm LVPW Diastolic Thickness 1.2 cm 0.6 - 1.0 / 0.6 - 0.9 cm LV Relative Wall Thickness 0.9 RV Internal Dim ED PLAX 2.7 cm M-MODE Aortic Root Diameter MM 3.0 cm LA Systolic Diameter MM 4.0 cm LA Ao Ratio MM 1.3 AV Cusp Separation MM 2.1 cm DOPPLER AV Peak Velocity 110.7 cm/s AV Peak Gradient 4.9 mmHg AV Mean Velocity 83.9 cm/s AV Mean Gradient 3.1 mmHg AV Velocity Time Integral 19.5 cm LVOT Peak Velocity 90.9 cm/s LVOT Peak Gradient 3.3 mmHg LVOT Velocity Time Integral 14.6 cm MV Area PHT 2.7 cm??? Mitral E Point Velocity 53.6 cm/s Mitral A Point Velocity 87.1 cm/s Mitral E to A Ratio 0.6 MV Deceleration Time 281.1 ms TR Peak Velocity 205.9 cm/s TR Peak Gradient 17.0 mmHg Right Ventricular Systolic Press 22.0 mmHg FINDINGS Left Ventricle Mildly increased left ventricular wall thickness. Left ventricular cavity size normal. No obvious regional wall motion abnormalities. Left ventricular ejection fraction is estimated at 55-60 %. Right Ventricle Normal right ventricular size and function. Right ventricular systolic pressure within normal limits. Right Atrium Right atrium not well visualized. Left Atrium Mild left atrial dilatation. Mitral Valve Mitral valve thickened. Mild mitral regurgitation. Aortic Valve No aortic valve stenosis or regurgitation. Tricuspid Valve Structurally normal tricuspid valve. Mild tricuspid regurgitation. Pulmonic Valve Pulmonic valve not well visualized. Pericardium No pericardial effusion. Aorta Normal size aortic root and proximal ascending aorta. CONCLUSIONS Technically difficult study. 1. Normal left ventricular size and systolic function 2. Mild mitral and tricuspid regurgitation Previewed by: Dr. Brittany Mojica MD (Electronically Signed) Final Date: 30 July 2023 18:15
== END | disposition home or self-care (01) ==
LOC: RADUSWWP 09:52
PROVIDERS: ATTEND Internal Medicine
DX: I65.23 Occlusion and stenosis of bilateral carotid arteries (principal); I34.0 Nonrheumatic mitral (valve) insufficiency; I36.1 Nonrheumatic tricuspid (valve) insufficiency
CPT/HCPCS: 93306; 93880

== ENCOUNTER → 2023-10-05 | Outpatient (CLI) | payer MEDICARE | END | disposition home or self-care (01) | LOC: LABPRL 11:00 | PROVIDERS: ATTEND Surgery | DX: E21.0 Primary hyperparathyroidism (principal) | CPT/HCPCS: 81050; 82340 ==

== ENCOUNTER → 2023-12-10 | Outpatient (CLI) | payer MEDICARE | END | disposition home or self-care (01) | LOC: LABWHC1 08:42 | PROVIDERS: ATTEND Internal Medicine | DX: Z98.890 Other specified postprocedural states (principal); Z90.89 Acquired absence of other organs | CPT/HCPCS: 36415; 82310 ==

== ENCOUNTER 2024-05-13 11:44 | Emergency (ER) | payer MEDICARE ==
[2024-05-13 11:53] VITALS: TEMP 97.8
--- NOTE | 2024-05-13 12:05 | ED ---
General Adult HPI - General Chief complaint: Fall Stated complaint: Fall-L wrist injury Time Seen by Provider: 05/13/24 12:00 Source: patient, family, RN notes reviewed Mode of arrival: wheelchair Limitations: physical limitation - History of Present Illness Initial comments: Patient is a 78-year-old female presenting to the emergency department with co ncerns with left wrist injury. Incident occurred just prior to arrival. Patient was walking down the steps and tripped. Patient struck her left wrist she believes on the banister however has not exactly clear on mechanism. No other area of injury or concern. No head injury or loss of consciousness. No neck or back pain. No chest pain or dyspnea, no abdominal pain. Patient is right hand dominant - Related Data Home Medications Medication Instructions Recorded Confirmed Biotin [Biotin Disolve] 5,000 mcg PO DAILY 06/26/19 05/20/22 Cyanocobalamin (Vitamin B-12) 1,000 mcg PO DAILY 06/26/19 05/20/22 [Vitamin B-12] Etodolac [Lodine] 400 mg PO BID PRN 06/26/19 05/20/22 Lansoprazole 30 mg PO QAM 06/26/19 05/20/22 Loratadine [Claritin] 10 mg PO DAILY 06/26/19 05/20/22 Magnesium 250 mg PO DAILY 06/26/19 05/20/22 Potassium Chloride ER [K-Dur 20] 10 meq PO Q2D 06/26/19 05/20/22 Potassium Chloride ER [K-Dur 20] 20 meq PO Q2D 06/26/19 05/20/22 Simvastatin [Zocor] 40 mg PO DAILY 06/26/19 05/20/22 Tolterodine Tartrate [Detrol LA] 4 mg PO DAILY 06/26/19 05/20/22 diphenhydrAMINE HCL [Benadryl] 50 mg PO HS 06/26/19 05/20/22 hydroCHLOROthiazide 25 mg PO BID 06/26/19 05/20/22 [Hydrochlorothiazide] Cholecalciferol [Vitamin D3 (25 50 mcg PO DAILY 02/09/22 05/20/22 Mcg = 1000 Iu)] DULoxetine HCL [Cymbalta] 20 mg PO DAILY 02/09/22 05/20/22 Montelukast Sodium [Singulair] 10 mg PO HS 02/09/22 05/20/22 Niacinimide 500 mg PO BID 05/13/22 05/20/22 Previous Rx's Medication Instructions Recorded HYDROcodone/APAP 5-325MG [[place] 1 tab PO Q6HR PRN #28 tab 05/20/22 5-325] Allergies Allergy/AdvReac Type Severity Reaction Status Date / Time cephalexin [From Keflex] Allergy Anaphylaxis Verified 05/13/24 11:47 clindamycin Allergy Anaphylaxis Verified 05/13/24 11:47 Penicillins Allergy Anaphylaxis Verified 05/13/24 11:47 tramadol AdvReac Vomiting Verified 05/13/24 11:47 Review of Systems ROS Statement: Those systems with pertinent positive or pertinent negative responses have been documented in the HPI. ROS Other: All systems not noted in ROS Statement are negative. Constitutional: Denies: fever Eyes: Denies: eye pain Respiratory: Denies: cough, dyspnea Cardiovascular: Denies: chest pain Gastrointestinal: Denies: abdominal pain Musculoskeletal: Reports: as per HPI. Denies: back pain Past Medical History Past Medical History: Cancer, GERD/Reflux, Hyperlipidemia Additional Past Medical History / Comment(s): Ovarian Cancer- 1983 & Breast 2014 with chemo and radiation. Hx. of kidney stones. Lymphedema left arm. Pulmonary fibrosis. History of Any Multi-Drug Resistant Organisms: None Reported Past Surgical History: Breast Surgery, Orthopedic Surgery Additional Past Surgical History / Comment(s): Breast surgery bilat., R hand trigger finger surgery. Cervical 6&7 neck surgery, R elbow surgery. Past Anesthesia/Blood Transfusion Reactions: Postoperative Nausea & Vomiting (PONV) Smoking Status: Never smoker - Past Family History Father Family Medical History: CVA/TIA Mother Additional Family Medical History / Comment(s): Pulmonary Fibrosis. General Exam Limitations: physical limitation General appearance: alert Head exam: Present: normocephalic Eye exam: Present: normal appearance Neck exam: Present: normal inspection. Absent: tenderness, meningismus Respiratory exam: Present: normal lung sounds bilaterally Cardiovascular Exam: Present: regular rate, normal rhythm Expanded Peripheral pulses: 2+: Radial (L) GI/Abdominal exam: Present: soft. Absent: tenderness Extremities exam: Present: tenderness (Tenderness and swelling left distal forearm. Distally the extremity is neurovascularly intact.) Neurological exam: Present: alert. Absent: motor sensory deficit Psychiatric exam: Present: normal affect, normal mood Skin exam: Present: normal color Course Vital Signs 05/13/24 05/13/24 05/13/24 11:47 12:10 12:32 Temperature 97.8 F Pulse Rate 88 88 82 Respiratory 24 26 H 24 Rate Blood Pressure 142/77 121/73 125/73 O2 Sat by Pulse 100 97 99 Oximetry 05/13/24 05/13/24 05/13/24 13:12 14:07 14:13 Temperature Pulse Rate 83 72 73 Respiratory 24 16 14 Rate Blood Pressure 126/62 104/58 103/65 O2 Sat by Pulse 100 100 100 Oximetry 05/13/24 05/13/24 05/13/24 14:15 14:20 14:25 Temperature Pulse Rate 74 76 71 Respiratory 16 18 16 Rate Blood Pressure 109/65 99/60 80/46 O2 Sat by Pulse 100 100 100 Oximetry 05/13/24 14:30 Temperature Pulse Rate 71 Respiratory 18 Rate Blood Pressure 77/48 O2 Sat by Pulse 97 Oximetry Procedures - Nerve Block Consent Obtained: verbal consent Local Anesthetic Used: Lidocaine 1% Amount of anesthesia used: 5 Side: left Nerve Blocks: hematoma block (Left dorsal distal radius) Procedure Successful: Yes (Improvement of symptoms but not enough to do procedure) Complications: none - Orthopedic Fracture Reduction Fracture #1 Consent Obtained: verbal consent, written consent Side: left Fracture Reduction Location: radius Analgesia: procedural sedation, hematoma block Technique: direct manipulation Post Reduction X-rays Demonstrate: anatomical reduction Post-Reduction Neuro Exam: intact Splint Applied: Yes Patient Tolerated Procedure: well, no complications - Orthopedic Splinting/Casting Injury #1 Side: left Upper Extremity Injury Location: short arm, wrist Upper Extremity Immobilizer: sugar tong splint - Procedural Sedation *Procedural Sedation Start Time: 14:07 *Procedural Sedation Stop Time: 14:31 *Risks,benefits, and alternative therapies discussed?: Yes *Patient indicates understanding of risk/benefit discussion?: Yes *Indications: fracture/dislocation reduction *Previous Adverse Reaction to Anesthesia/Sedation?: No * Testing Complete?: No Reason Test Not Complete:: Age > 60 *ASA Class: II *Mallampati Airway Score: 2 Preparation: cardiac monitor technician applied, pulse oximeter, capnometry used, s upplemental O2 applied IV Propofol Dose (mgs): 85 Complications: none Patient Tolerated Procedure: well, no complications Medical Decision Making - Medical Decision Making Was pt. sent in by a medical professional or institution (JEN Stewart, INTEGRATION TECHNICIAN, urgent care, hospital, or fdc...) When possible be specific @ -No Did you speak to anyone other than the patient for history (EMS, parent, family, police, friend...)? What history was obtained from this source @ - is present helps provide history including incident of fall Did you review nursing and triage notes (agree or disagree)? Why? @ -I reviewed and agree with nursing and triage notes Were old charts reviewed (outside hosp., previous admission, EMS record, old EKG, old radiological studies, urgent care reports/EKG's, fdc records)? Report findings @ -No old charts were reviewed Differential Diagnosis (chest pain, altered mental status, abdominal pain women, abdominal pain men, vaginal bleeding, weakness, fever, dyspnea, syncope, headache, dizziness, GI bleed, back pain, seizure, CVA, palpatations, mental health, musculoskeletal)? @ -Differential Musculoskeletal Muscular strain, contusion, ligament sprain, fracture, arthritis, septic arthritis, bursitis, cellulitis, muscle spasm, nerve compression, DVT, arterial occlusion, herpes zoster, electrolyte abnormality, tumor.... This is not meant to be in all inclusive list EKG interpreted by me (3pts min.). @ -As above X-rays interpreted by me (1pt min.). @ -X-ray shows distal left radius fracture with angulation, possible styloid fracture CT interpreted by me (1pt min.). @ -None done U/S interpreted by me (1pt. min.). @ -None done What testing was considered but not performed or refused? (CT, X-rays, U/S, labs)? Why? @ -None What meds were considered but not given or refused? Why? @ -None Did you discuss the management of the patient with other professionals (professionals i.e. JEN Stewart, INTEGRATION TECHNICIAN, lab, RT, psych nurse, social media marketing analyst, ship fastener, teacher, police officer booking, manager rn case)? Give summary @ -Case was discussed with Dr. Garcia send Was smoking cessation discussed for >3mins.? @ -No Was critical care preformed (if so, how long)? @ -No Were there social determinants of health that impacted care today? How? (Homelessness, low income, unemployed, alcoholism, drug addiction, transportation, low edu. Level, literacy, decrease access to med. care, [facility], rehab)? @ -No Was there de-escalation of care discussed even if they declined (Discuss DNR or withdrawal of care, Hospice)? DNR status @ -No What co-morbidities impacted this encounter? (DM, HTN, Smoking, COPD, CAD, Cancer, CVA, ARF, Chemo, Hep., AIDS, mental health diagnosis, sleep apnea, morbid obesity)? @ -None Was patient admitted / discharged? Hospital course, mention meds given and route, prescriptions, significant lab abnormalities, going to OR and other pertinent info. @ -Patient presents with distal radius fracture. Reduction with significant improvement of alignment. Splint placed. Patient will be discharged with orthopedic follow-up. Patient and family updated. Undiagnosed new problem with uncertain prognosis? @ -No Drug Therapy requiring intensive monitoring for toxicity (Heparin, Nitro, Insulin, Cardizem)? @ -No Were any procedures done? @ -See above: Reduction, splinting, and sedation Diagnosis/symptom? @ -Distal radius fracture Acute, or Chronic, or Acute on Chronic? @ -Acute Uncomplicated (without systemic symptoms) or Complicated (systemic symptoms)? @ -Default Side effects of treatment? @ -No Exacerbation, Progression, or Severe Exacerbation? @ -No Poses a threat to life or bodily function? How? (Chest pain, [place], AR, pneumonia, PE, COPD, DKA, ARF, appy, cholecystitis, CVA, Diverticulitis, Homicidal, Suicidal, threat to staff... and all critical care pts) @ -Threat to limb function Disposition Clinical Impression: Fall, Distal radius fracture, left Disposition: HOME SELF-CARE Condition: Stable Instructions (If sedation given, give patient instructions): Wrist Fracture in Adults (ED), Fall Prevention (ED) Additional Instructions: Please do follow-up with orthopedics beginning of the week. Please also follow- up with your primary care physician. Ice to affected area. Return for increased pain, hand problems, worsening or changing symptoms or any other concerns. Is patient prescribed a controlled substance at d/c from ED?: No Referrals: Jeff Mukherjee MD [Primary Care Provider] - 1-2 days Time of Disposition: 14:33
[2024-05-13] MEDS: HYDROmorphone 1 MG/ML 1 ML SYRINGE IVP STA (12:10)
--- NOTE | 2024-05-13 12:28 | XR ---
EXAMINATION TYPE: XR forearm LT DATE OF EXAM: 05/13/2024 12:23 PM COMPARISON: None. CLINICAL INDICATION: Female, 78 years old with history of fall, pain TECHNIQUE: XR forearm LT XX views were obtained. FINDINGS: Comminuted and displaced distal radial fracture and displacement of 9 mm. Dorsal angulation. Soft tis debra deformity and edema. IMPRESSION: As above [facility], , 05/13/2024 12:25 PM
[2024-05-13] MEDS: LIDOCAINE 1% INJ 10MG/ML (20 ML MDV) SQ ONE (13:31)
[2024-05-13] MEDS: PROPOFOL 10 MG/ML 20 ML VIAL IV ONE (14:08)
--- NOTE | 2024-05-13 14:37 | XR ---
EXAMINATION TYPE: XR wrist limited LT DATE OF EXAM: 05/13/2024 2:25 PM COMPARISON: Previous same day left forearm radiograph. CLINICAL INDICATION: Female, 78 years old with history of reduction; [facility] TECHNIQUE: XR wrist limited LT; examined in the Frontal, navicular, lateral, and oblique. FINDINGS: Improved anatomic alignment of comminuted distal radius fracture status post reduction. No new acute fracture identified. Carpal alignment appears stable. Soft tissue swelling again noted. Desiree luation for osseous detail suboptimal due to overlying cast/splint. IMPRESSION: Improved anatomic alignment of comminuted distal radius fracture status post reduction. [facility], , 05/13/2024 2:34 PM
[2024-05-13 14:55] VITALS: BP 115/75; PULSE 79; RESP 16
[2024-05-13] MEDS: ACET/COD 300 MG/30 MG STARTER PACK 6 TAB BTL PO STA (15:09)
== END 2024-05-13 15:18 | disposition home or self-care (01) ==
LOC: EC 11:44
DX: S52.502A Unspecified fracture of the lower end of left radius, initial encounter for closed fracture (principal); Z88.0 Allergy status to penicillin; Z88.1 Allergy status to other antibiotic agents; Z88.5 Allergy status to narcotic agent; W10.9XXA Fall (on) (from) unspecified stairs and steps, initial encounter; Y93.01 Activity, walking, marching and hiking
CPT/HCPCS: 73090; 73100; 99283; 96374; 64450; 99152; J2003; J1171; J2704